=== PATIENT | female | born 1955 | race Two or more races ===

== ENCOUNTER → 2017-05-30 | Emergency (ER) | payer OTHER ==
[~2017-05-30] VITALS: Ht 160 cm; Wt 88.0 kg
[~2017-05-30] MED LIST: ADVAIR 5001 DISK W/1; ANTIVERT25 M1; BUSPIRONE HCL30 MG; Buspar PO; CARTIA XT240 MG PO; CATAPRES0.2 MG; CATAPRES0.3 M1; COMBIVENT RESPIM4 GM; COMBIVENT RESPIM4 GM PO; CORICIDIN COLD1 EACH; COUMADIN10 MG PO; COUMADIN2.5 MG; COUMADIN6 MG; COUMADIN7.5 MG PO; Cozaar PO; DILTIAZEM 24HR360 MG; DULCOLAX; EFFEXOR XR75 MG; FELODIPINE ER5 MG; FOLIC ACID1 MG; FOLIC ACID1 MG PO; FUROSEMIDE40 MG; GABAPENTIN300 MG; HYDROCHLOROTHIA25 MG; INTEGRA PLUS C1 EACH PO; IRON325 ( 65 ); MONTELUKAST SOD10 MG; MULTAQ400 MG; MULTAQ400 MG PO; Neurin-Sl Tablet Sl SL; POM (MEDICAMENTO EN PISO) OP; POM (MEDICAMENTO EN PISO) PO; PRAVASTATIN SOD40 MG; PRAVASTATIN SOD40 MG PO; PREDNISONE10 MG; PROTONIX40 M1; PROTONIX40 MG PO; SENNA LAXATIVE8.6 MG; SENNA LAXATIVE8.6 MG PO; SILDENAFIL20 MG; SILDENAFIL20 MG PO; SINGULAIR 10MG10 MG PO; STOOL SOFTENER100 MG; STOOL SOFTENER100 MG PO; VALSARTAN-HCTZ1 EAC3; XOPENEX HFA15 GM; XOPENEX HFA15 GM PO; ZOLPIDEM TARTRA10 MG PO
== END | disposition designated cancer center or children's hospital (05) ==
LOC: ER 10:20
DX: T85.838A Hemorrhage due to other internal prosthetic devices, implants and grafts, initial encounter (principal); T45.515A Adverse effect of anticoagulants, initial encounter; T82.898A Other specified complication of vascular prosthetic devices, implants and grafts, initial encounter; Z79.01 Long term (current) use of anticoagulants

== ENCOUNTER → 2017-07-17 | Emergency (ER) | payer OTHER ==
[~2017-07-17] VITALS: Ht 160 cm; Wt 88.0 kg
[~2017-07-17] MED LIST changes: +DIOVAN160 M1
== END | disposition designated cancer center or children's hospital (05) ==
LOC: ER 10:54
DX: D63.8 Anemia in other chronic diseases classified elsewhere (principal); R07.89 Other chest pain; I10 Essential (primary) hypertension; R60.0 Localized edema; Z79.01 Long term (current) use of anticoagulants

== ENCOUNTER 2017-08-29 19:34 | Inpatient (IN) | payer OTHER ==
[~2017-08-29] VITALS: Ht 162.6 cm; Wt 117.9 kg
== END 2017-10-08 18:20 | disposition expired | DRG 870 ==
LOC: ER 19:34 → ICU-2 08-30 11:12 → ICU 09-06 20:58
PROC: 5A09557 Assistance with Respiratory Ventilation, Greater than 96 Consecutive Hours, Continuous Positive Airway Pressure (ICD-10-PCS; 2017-08-30)
PROC: 4A033R1 Measurement of Arterial Saturation, Peripheral, Percutaneous Approach (ICD-10-PCS; 2017-08-30)
PROC: 3E0F7GC Introduction of Other Therapeutic Substance into Respiratory Tract, Via Natural or Artificial Opening (ICD-10-PCS; 2017-08-30)
PROC: 30233N1 Transfusion of Nonautologous Red Blood Cells into Peripheral Vein, Percutaneous Approach (ICD-10-PCS; 2017-08-30)
PROC: B246ZZZ Ultrasonography of Right and Left Heart (ICD-10-PCS; 2017-08-30)
PROC: BW40ZZZ Ultrasonography of Abdomen (ICD-10-PCS; 2017-08-31)
PROC: B54MZZZ Ultrasonography of Right Upper Extremity Veins (ICD-10-PCS; 2017-09-07)
PROC: B246ZZZ Ultrasonography of Right and Left Heart (ICD-10-PCS; 2017-09-12)
PROC: BB4BZZZ Ultrasonography of Pleura (ICD-10-PCS; 2017-09-27)
PROC: 5A09457 Assistance with Respiratory Ventilation, 24-96 Consecutive Hours, Continuous Positive Airway Pressure (ICD-10-PCS; 2017-09-27)
PROC: B020ZZZ Computerized Tomography (CT Scan) of Brain (ICD-10-PCS; 2017-09-28)
PROC: BB24ZZZ Computerized Tomography (CT Scan) of Bilateral Lungs (ICD-10-PCS; 2017-09-28)
PROC: 30233K1 Transfusion of Nonautologous Frozen Plasma into Peripheral Vein, Percutaneous Approach (ICD-10-PCS; 2017-09-28)
PROC: 5A1955Z Respiratory Ventilation, Greater than 96 Consecutive Hours (ICD-10-PCS; principal; 2017-10-01)
PROC: 0BH17EZ Insertion of Endotracheal Airway into Trachea, Via Natural or Artificial Opening (ICD-10-PCS; 2017-10-01)
PROC: BW28ZZZ Computerized Tomography (CT Scan) of Head (ICD-10-PCS; 2017-10-01)
PROC: 05HN33Z Insertion of Infusion Device into Left Internal Jugular Vein, Percutaneous Approach (ICD-10-PCS; 2017-10-03)
PROC: B544ZZA Ultrasonography of Left Jugular Veins, Guidance (ICD-10-PCS; 2017-10-03)
PROC: B54NZZZ Ultrasonography of Left Upper Extremity Veins (ICD-10-PCS; 2017-10-05)
DX: A41.59 Other Gram-negative sepsis (principal); I61.6 Nontraumatic intracerebral hemorrhage, multiple localized; J96.01 Acute respiratory failure with hypoxia; I50.23 Acute on chronic systolic (congestive) heart failure; J15.1 Pneumonia due to Pseudomonas; R65.21 Severe sepsis with septic shock; J44.1 Chronic obstructive pulmonary disease with (acute) exacerbation; N17.8 Other acute kidney failure; N39.0 Urinary tract infection, site not specified; B37.49 Other urogenital candidiasis; J45.41 Moderate persistent asthma with (acute) exacerbation; B37.0 Candidal stomatitis; J90 Pleural effusion, not elsewhere classified; I11.0 Hypertensive heart disease with heart failure; I27.29 Other secondary pulmonary hypertension; I48.0 Paroxysmal atrial fibrillation; G47.33 Obstructive sleep apnea (adult) (pediatric); Z95.2 Presence of prosthetic heart valve; I34.0 Nonrheumatic mitral (valve) insufficiency; B96.1 Klebsiella pneumoniae [K. pneumoniae] as the cause of diseases classified elsewhere; Z16.12 Extended spectrum beta lactamase (ESBL) resistance; D64.89 Other specified anemias; R60.1 Generalized edema; Z95.810 Presence of automatic (implantable) cardiac defibrillator